=== PATIENT | male | born 1990 | race Caucasian/White ===

== ENCOUNTER 2023-09-19 19:52 | Emergency (ER) | payer BC, OTHER ==
[2023-09-19 19:58] VITALS: BP 127/83; PULSE 60; RESP 18; TEMP 98.7; BMI 24.3
[2023-09-19] MEDS ORDERED: DIPHTH,PERTUSS(ACELL),TET 0.5 ML DISP.SYRIN IM ONE (21:15)
[2023-09-19] MEDS: DIPHTH,PERTUSS(ACELL),TET 0.5 ML DISP.SYRIN IM ONE (21:18)
[2023-09-19] MEDS ORDERED: RABIES IMMUNE GLOBULIN 300 UNITS/1 ML VIAL ONE (21:34)
[2023-09-19] MEDS ORDERED: RABIES VACCINE (PCEC)/PF 2.5 UNIT/VIAL IM ONE (21:34)
[2023-09-19] MEDS ORDERED: DOXYCYCLINE HYCLATE 100 MG CAPSULE PO ONE (21:48)
[2023-09-19] MEDS ORDERED: metroNIDAZOLE 250 MG TABLET ONE (21:48)
[2023-09-19] MEDS: DOXYCYCLINE HYCLATE 100 MG CAPSULE PO ONE (22:00)
[2023-09-19] MEDS: metroNIDAZOLE 500 MG TABLET PO ONE (22:00)
[2023-09-19] MEDS: RABIES VACCINE (PCEC)/PF 2.5 UNIT/VIAL IM ONE (22:00)
[2023-09-19] MEDS: RABIES IMMUNE GLOBULIN 300 UNITS/1 ML VIAL IM ONE (22:01)
== END 2023-09-19 22:14 | disposition home or self-care (01) ==
LOC: JERFT 19:52
PROC: 3E0234Z Introduction of Serum, Toxoid and Vaccine into Muscle, Percutaneous Approach (ICD-10-PCS; principal; 2023-09-19)
DX: S51.851A Open bite of right forearm, initial encounter (principal); W54.0XXA Bitten by dog, initial encounter; Z23 Encounter for immunization
CPT/HCPCS: 90375; 90471; 90675; 90715; 99284-25

== ENCOUNTER 2023-09-22 13:29 | Emergency (ER) | payer OTHER ==
[2023-09-22 13:36] VITALS: BP 120/74; PULSE 58; RESP 20; TEMP 98.7; BMI 21.9
[2023-09-22] MEDS ORDERED: RABIES VACCINE (PCEC)/PF 2.5 UNIT/VIAL IM ONE (14:39)
[2023-09-22] MEDS: RABIES VACCINE (PCEC)/PF 2.5 UNIT/VIAL IM ONE (14:50)
== END 2023-09-22 15:30 | disposition home or self-care (01) ==
LOC: JERFT 13:29
PROC: 3E0234Z Introduction of Serum, Toxoid and Vaccine into Muscle, Percutaneous Approach (ICD-10-PCS; principal; 2023-09-22)
DX: Z29.14 Encounter for prophylactic rabies immune globulin (principal)
CPT/HCPCS: 90675; 99281-25

== ENCOUNTER 2023-09-26 15:50 | Emergency (ER) | payer OTHER ==
[2023-09-26] MEDS ORDERED: RABIES VACCINE (PCEC)/PF 2.5 UNIT/VIAL IM ONE (16:05)
[2023-09-26 16:21] VITALS: BP 111/68; PULSE 76; RESP 19; TEMP 98.6; BMI 23.3
[2023-09-26] MEDS: RABIES VACCINE (PCEC)/PF 2.5 UNIT/VIAL IM ONE (16:51)
== END 2023-09-26 16:57 | disposition home or self-care (01) ==
LOC: JERFT 15:50
PROC: 3E0234Z Introduction of Serum, Toxoid and Vaccine into Muscle, Percutaneous Approach (ICD-10-PCS; principal; 2023-09-26)
DX: Z29.14 Encounter for prophylactic rabies immune globulin (principal)
CPT/HCPCS: 90675; 99281-25

== ENCOUNTER 2023-10-03 15:09 | Emergency (ER) | payer OTHER ==
[2023-10-03 15:19] VITALS: BP 112/73; PULSE 69; RESP 18; TEMP 98; BMI 23.5
[2023-10-03] MEDS ORDERED: RABIES VACCINE (PCEC)/PF 2.5 UNIT/VIAL IM ONE (15:21)
[2023-10-03] MEDS: RABIES VACCINE (PCEC)/PF 2.5 UNIT/VIAL IM ONE (15:25)
== END 2023-10-03 15:42 | disposition home or self-care (01) ==
LOC: JERFT 15:09
PROC: 3E0234Z Introduction of Serum, Toxoid and Vaccine into Muscle, Percutaneous Approach (ICD-10-PCS; principal; 2023-10-03)
DX: Z29.14 Encounter for prophylactic rabies immune globulin (principal)
CPT/HCPCS: 90675; 99281-25